=== PATIENT | male | born 1995 | race Two or more races ===

== ENCOUNTER 2024-03-16 08:00 | Outpatient (RCR) | payer MEDICAID, SELFPAY ==
--- NOTE | 2024-03-10 16:00 | PTNOTE_ITS ---
PT OP Initial Eval Patient Information Outpatient Physical Therapy Treatment Date: 03/10/24 Visit Reasons: MULTIPLE INJURIES DUE TO FALL Medical Diagnosis: [id number] Treatment Dx #1: back pain Treatment Dx #2: L knee pain, R ankle dec ROM Start of Care: 03/10/24 Date of Onset: 01/08/24 Smoking Status Smoking Status: Never smoker Initial Assessment Subjective: Pt is 28 yr old male who fell 30ft from a roof in December at work. He presents in W/C today and is NWB on B LE's until Mar 18. Pt underwent L3-5 laminectomy and fusion on 01/10/24 and sternal FX on sternal precautions, L bicondylar tibial plateau FX and L tibial ORIF on 01/11/24 and R subtalar FX dislocation with ORIF R talus on 01/18/24. He wore TLSO brace for 6 weeks and then the brace was D/C'd this week. Pt reports low pain level of L/S and R ankle but stiffness. The L knee hurts while he is sitting and in bed. PMH: T1DM Imaging: reports in MD notes Pt goal: to strengthen LE's and back to walk when WB status allows Objective: L knee AROM: Flexion: 100 deg Extension: full TTP: moderate of incision scars at the knee R ankle AROM: DF: 3 deg PF: 45 deg Gait: NT due to B NWB status Assessment: Pt presents with multiple surgical sites and mobility in standing not assessed due to NWB status. Pt has pain and stiffness and decreased ROM of L knee and R ankle consistent with referring Dx and surgical Hx. Pt requires skilled therapy to meet goals and has good rehab potential. Short Term and Senior Living Goals 1. Ind with HEP 2. Transfer sit to stand independently when WB status allows 3. Improved L knee AROM to full extension and flexion 4. Improved R ankle AROM to at least 8 deg DF and 50 deg PF 4. Pt will ambulate community distances without assistive device Treatment Plan ?1. Manual therapy ? 2. Therex ? 3. Modalities as indicated, moist heat, ice, estim Frequency and Duration: 2x a week for 24 visits. Will need more authorization after 12 Certification Dates: 03/10/24 to 06/08/24 Procedure Charges OP PT Eval Mod Complex 30 minutes: Yes
--- NOTE | 2024-03-16 09:32 | PT.ODAYNRPT ---
PT Outpatient Daily Note OP Daily Note Outpatient Physical Therapy Treatment Date: 03/16/24 Visit Reasons: MULTIPLE INJURIES DUE TO FALL Subjective: Pt reports R ankle swelling, LBP after sleeping Objective: See F/S for therex Assessment: Pt is NWB until Mar 18 so therex done in sitting Plan: Continue per POC Length of Time (minutes) of Treatment: 30 Minutes Procedure Charges Therapeutic Exercise 30 minutes: Yes
== END 2024-03-17 23:59 | disposition home or self-care (01) ==
LOC: CPTX 08:00
PROVIDERS: PCP Internal Medicine; Referring Provider Student in an Organized Health Care Education/Training Program; Visit Provider Student in an Organized Health Care Education/Training Program
DX: M25.562 Pain in left knee (principal); M54.9 Dorsalgia, unspecified; M25.671 Stiffness of right ankle, not elsewhere classified; S82.142D Displaced bicondylar fracture of left tibia, subsequent encounter for closed fracture with routine healing; S22.20XD Unspecified fracture of sternum, subsequent encounter for fracture with routine healing; S92.101D Unspecified fracture of right talus, subsequent encounter for fracture with routine healing; W17.89XD Other fall from one level to another, subsequent encounter; Z98.1 Arthrodesis status
CPT/HCPCS: 97110; 97162

== ENCOUNTER 2024-04-10 10:00 | Outpatient (RCR) | payer MEDICAID, SELFPAY ==
--- NOTE | 2024-03-20 10:27 | PT.ODAYNRPT ---
PT Outpatient Daily Note OP Daily Note Outpatient Physical Therapy Treatment Date: 03/20/24 Visit Reasons: Multiple injuries due to fall Subjective: Pt reports R ankle swelling, LBP after sleeping. Arrives ambulating with 4WW and L knee brace Objective: See F/S for therex Assessment: Pt is WBAT as of Mar 18 and he is ambulating with slightly unsymmetrical gait with decreased L knee flexion Plan: Continue per POC Length of Time (minutes) of Treatment: 30 Minutes Procedure Charges Therapeutic Exercise 30 minutes: Yes
--- NOTE | 2024-04-10 10:34 | PT.ODAYNRPT ---
PT Outpatient Daily Note OP Daily Note Outpatient Physical Therapy Treatment Date: 04/10/24 Visit Reasons: Multiple injuries due to fall Subjective: Pt arrives ambulating without assistive device and reports low to no pain in the knees and ankles. Objective: See F/S for therex Assessment: Pt is ambulating with slightly unsymmetrical gait with decreased L knee flexion Plan: Continue per POC Length of Time (minutes) of Treatment: 30 Minutes Procedure Charges Therapeutic Exercise 30 minutes: Yes
== END 2024-04-14 23:59 | disposition home or self-care (01) ==
LOC: CPTX 10:00
PROVIDERS: PCP Internal Medicine; Referring Provider Student in an Organized Health Care Education/Training Program; Visit Provider Student in an Organized Health Care Education/Training Program
DX: M54.50 Low back pain, unspecified (principal); M25.562 Pain in left knee; T07.XXXD Unspecified multiple injuries, subsequent encounter; W13.2XXD Fall from, out of or through roof, subsequent encounter
CPT/HCPCS: 97110

== ENCOUNTER 2024-05-03 14:00 | Outpatient (RCR) | payer MEDICAID, SELFPAY ==
--- NOTE | 2024-04-17 13:15 | PT.ODAYNRPT ---
PT Outpatient Daily Note OP Daily Note Outpatient Physical Therapy Treatment Date: 04/17/24 Visit Reasons: Multiple injuries due to fall Subjective: Pt arrives ambulating without assistive device and reports low to no pain in the knees and ankles. Objective: See F/S for therex Assessment: Pt is ambulating with slightly unsymmetrical gait with decreased L knee flexion. Good LE strength with partial body weight squatting and lunging. Plan: Continue per POC Length of Time (minutes) of Treatment: 30 Minutes Procedure Charges Therapeutic Exercise 30 minutes: Yes
--- NOTE | 2024-04-19 12:34 | PT.ODAYNRPT ---
PT Outpatient Daily Note OP Daily Note Outpatient Physical Therapy Treatment Date: 04/19/24 Visit Reasons: Multiple injuries due to fall Subjective: Pt arrives ambulating without assistive device and reports low to no pain in the knees and ankles. Objective: See F/S for therex Assessment: Pt is ambulating with slightly unsymmetrical gait. L knee flexion in supine is 125 deg. Good LE strength with partial body weight squatting and lunging. Plan: Continue per POC Length of Time (minutes) of Treatment: 30 Minutes Procedure Charges Therapeutic Exercise 30 minutes: Yes
--- NOTE | 2024-04-25 09:51 | PT.ODAYNRPT ---
PT Outpatient Daily Note OP Daily Note Outpatient Physical Therapy Treatment Date: 04/25/24 Visit Reasons: Multiple injuries due to fall Subjective: Pt arrives ambulating without assistive device and reports the L LE feels heavy when he bends the knee. He wants to try to walk better without the limp. Objective: See F/S for therex Assessment: Pt is ambulating with slightly unsymmetrical gait and less L knee flexion during swing phase. L knee flexion in supine is 125 deg. Good LE strength with partial body weight squatting and lunging. Plan: Continue per POC Length of Time (minutes) of Treatment: 30 Minutes Procedure Charges Therapeutic Exercise 30 minutes: Yes
--- NOTE | 2024-04-27 10:33 | PT.ODAYNRPT ---
PT Outpatient Daily Note OP Daily Note Outpatient Physical Therapy Treatment Date: 04/27/24 Visit Reasons: Multiple injuries due to fall Subjective: No new complaints. Objective: Please see flow sheet for ther ex list. Assessment: Pt tolerated interventions with no complaints. Plan: Continue with pOC. Length of Time (minutes) of Treatment: 30 Minutes Procedure Charges Therapeutic Exercise 30 minutes: Yes
--- NOTE | 2024-05-03 15:41 | PT.ODAYNRPT ---
PT Outpatient Daily Note OP Daily Note Outpatient Physical Therapy Treatment Date: 05/03/24 Visit Reasons: Multiple injuries due to fall Subjective: Pt arrives ambulating without assistive device and reports doing better with walking without limping Objective: See F/S for therex Assessment: Pt is ambulating with slightly unsymmetrical gait and less L knee flexion during swing phase. Balance challenged by uneven surfaces. Plan: Continue per POC Length of Time (minutes) of Treatment: 30 Minutes Procedure Charges Therapeutic Exercise 30 minutes: Yes
== END 2024-05-15 23:59 | disposition home or self-care (01) ==
LOC: CPTX 14:00
PROVIDERS: PCP Internal Medicine; Referring Provider Internal Medicine; Visit Provider Internal Medicine
DX: M54.50 Low back pain, unspecified (principal); M25.562 Pain in left knee; M25.662 Stiffness of left knee, not elsewhere classified; T07.XXXD Unspecified multiple injuries, subsequent encounter; W17.89XD Other fall from one level to another, subsequent encounter
CPT/HCPCS: 97110

== ENCOUNTER 2024-07-20 13:14 | Outpatient (AMB) | payer MEDICAID, SELFPAY ==
[2024-07-20 13:45] VITALS: BP 122/67; PULSE 62; RESP 19; TEMP 37; O2SAT 98; BMI 21.1
--- NOTE | 2024-07-20 13:45 | ORTHONT_ITS ---
Vital signs 07/20/24 13:45 Height 1.88 m Height Method Stated Weight 74.531 kg Weight Measurement Method Standing Scale BMI 21.1 BP 122/67 Blood Pressure Source Automatic Cuff Blood Pressure Location Left Upper Arm Position Sitting Respiration 19 Pulse 62 Pulse Source Monitor Temp 98.6 F Temp Source Temporal Artery Scan Pulse Oximetry (%) 98 Oxygen Delivery Method Room Air Med/Allergies Allergies & Medications Allergies No Known Allergies Allergy (Verified 07/20/24 13:46) Medication Reconciliation insulin pump-infusion set-blood glucose meter kit 01/27/19 [History Confirmed 07/20/24] insulin aspart U-100 100 unit/mL subcutaneous solution (Novolog U-100 Insulin aspart) 1 sliding scale dose subcut USEASDIRECTD #10 mL 01/29/19 [Rx Confirmed 07/20/24] gabapentin 100 mg capsule 100 mg PO QDAY 07/20/24 [History Confirmed 07/20/24] oxycodone 5 mg capsule 5 mg PO BID PRN 07/20/24 [History Confirmed 07/20/24] Exam Exam Patient is in no acute distress and is cooperative with the examination today. Breathing is nonlabored. Patient has a normal mood and affect. The patient has a gait that is nonantalgic Bilateral extremities were evaluated and demonstrates sensation intact to light touch. Palpable pedal pulses are present. No significant edema is present. Bilateral hips were examined. The patient has no pain with log roll of the hips. Internal rotation to 30 degrees and external rotation to 30 degrees is painless. Negative FADIR. Right knee was examined today. The right knee is in reasonable alignment. Range of motion from 0-120 degrees. Knee is stable to varus and valgus as well as AP translation with <5mm. Patient has a negative McMurrays. There is no pain with patellofemoral compression and no crepitus noted. The knee is nontender to palpation. Left knee was examined today. The left knee is in neutral alignment. Range of motion from 0-120 degrees. Knee is stable to varus and valgus as well as AP t ranslation with <5mm. Patient has a negative McMurrays. There is no pain with patellofemoral compression and no crepitus noted. The knee is nontender to palpation diffusely. Left knee incision is clean dry and intact Left knee x-rays demonstrate reduced joints with 3 plates on it looks great Assessment and Plan Problem List (1) Tibial plateau fracture: Status: Acute Plan: Patient is a 29-year-old male with a tibial plateau fracture done at [facility]. He is doing well. He has not been seen since surgery and would like to get follow-up. We will get x-rays of his left knee and go from there. He has minimal pain at this time Office Procedures GNS Level of Care Nursing/Assessment Patient Status: Initial/New Patient Nursing Assessment/Reassesment: Medication Reconciliation, Update PMH in EMR and Vital Signs Coordination of Care: Complex Care and Chronic Disease 1-5, Education Complex Pt/Fam, Consent,records obtained, informed consent, 1 Ins Authorization, Lab and Imaging orders, Results/Orders obtained and Staff clarify orders New Patient Charge New Patient Point Assignment: 1124 New Patient Point Charge: SOFTWARE ASSET MANAGEMENT ANALYST Level 4 ([id number]) MA Intake Visit Data Collection New Patient or Established: New Patient (never been to [facility]) Reason for Visit:: FRACTURE SHAFT TIBIA Seen by Clinical Staff ONLY (RN/MA): No Classroom Instructional Aide Required: No PCP or OBGYN visit in last 3 months: Yes Hx Now: No Do You Feel Safe at Home: Yes Authorities Contacted: N/A Questionairres Past Medical History Past Medical History Have you ever been diagnosed with any of the following: Cardiology Problems Congestive Heart Failure: No Respiratory Problems Chronic Obstructive Pulmonary Disease (COPD): No Smoking: No Smoking Exposure: No Genital/Urinary Problems Renal Disease: No Endocrine Problems Diabetes Mellitus Type 1: Yes Diabetes Mellitus Type 2: No Subjective Visit Visit for: new patient Immunization / Flu Flu Vaccine in the Last 12 Months: No Flu Vaccine Exclusion Criteria: No Exclusion Criteria History of Present Illness Chief complaint: Left knee pain Date of injury / onset of symptoms: 01/12/2024 Personal History Occupation: UNEMPLOYED Additional comments: Yasir is a 29-year-old male who fell through a roof down 3 floors. He had a left tibial plateau fracture. It was treated with bicondylar plating done at [facility]. X-rays look great On immediate postoperative films. He has not been seen since the surgery. He is functioning well. Pain Pain level (0-10): 0 Ambulatory data Ambulatory device: none Treatments Improvement with previous injections: No Improvement with PT: No Improvement with NSAIDS: no Review of Systems Review of Systems: All systems negative unless otherwise noted in HPI.
--- NOTE | 2024-07-20 14:04 | XR_ITS ---
Examination: Left knee 4 views TECHNIQUE: AP oblique lateral axial left knee 4 views Date and time: July 20, 2024 1412 hours INDICATIONS: Status post knee surgery December 2023 FINDINGS: Postop reduction internal medication fractures proximal tibia Satisfactory alignment Satisfactory position orthopedic hardware Moderate tricompartment osteoarthritis most severe medial joint space IMPRESSION: Postop reduction internal fixation fractures proximal tibia with satisfactory alignment Moderate tricompartment osteoarthritis
== END 2024-07-20 14:07 | disposition home or self-care (01) ==
LOC: HODSRG 13:14
PROVIDERS: PCP Internal Medicine; Referring Provider Internal Medicine; Supervising Provider Orthopaedic Surgery Adult Reconstructive Orthopaedic Surgery; Visit Provider Orthopaedic Surgery Adult Reconstructive Orthopaedic Surgery
DX: S82.142D Displaced bicondylar fracture of left tibia, subsequent encounter for closed fracture with routine healing (principal); W13.2XXD Fall from, out of or through roof, subsequent encounter; M17.12 Unilateral primary osteoarthritis, left knee; E10.9 Type 1 diabetes mellitus without complications
CPT/HCPCS: 73564; 99204; G0463

== ENCOUNTER 2024-08-03 10:17 | Outpatient (AMB) | payer MEDICAID, SELFPAY ==
--- NOTE | 2024-08-03 10:36 | ORTHONT_ITS ---
Vital signs 08/03/24 10:37 Height 1.88 m Height Method Stated Weight 73.737 kg Weight Measurement Method Standing Scale BMI 20.8 BP 106/70 Blood Pressure Source Automatic Cuff Blood Pressure Location Right Upper Arm Position Sitting Respiration 18 Pulse 66 Pulse Source Monitor Temp 97.8 F Temp Source Temporal Artery Scan Pulse Oximetry (%) 97 Oxygen Delivery Method Room Air Med/Allergies Allergies & Medications Allergies No Known Allergies Allergy (Verified 08/03/24 10:39) Medication Reconciliation insulin pump-infusion set-blood glucose meter kit 01/27/19 [History Confirmed 08/03/24] insulin aspart U-100 100 unit/mL subcutaneous solution (Novolog U-100 Insulin aspart) 1 sliding scale dose subcut USEASDIRECTD #10 mL 01/29/19 [Rx Confirmed 08/03/24] gabapentin 100 mg capsule 100 mg PO QDAY 07/20/24 [History Confirmed 08/03/24] oxycodone 5 mg capsule 5 mg PO BID PRN 07/20/24 [History Confirmed 08/03/24] Exam Exam Patient is in no acute distress and is cooperative with the examination today. Breathing is nonlabored. Patient has a normal mood and affect. The patient has a gait that is nonantalgic Bilateral extremities were evaluated and demonstrates sensation intact to light touch. Palpable pedal pulses are present. No significant edema is present. Bilateral hips were examined. The patient has no pain with log roll of the hips. Internal rotation to 30 degrees and external rotation to 30 degrees is painless. Negative FADIR. Right knee was examined today. The right knee is in reasonable alignment. Range of motion from 0-120 degrees. Knee is stable to varus and valgus as well as AP translation with <5mm. Patient has a negative McMurrays. There is no pain with patellofemoral compression and no crepitus noted. The knee is nontender to palpation. Left knee was examined today. The left knee is in neutral alignment. Range of motion from 0-120 degrees. Knee is stable to varus and valgus as well as AP translation with <5mm. Patient has a negative McMurrays. There is no pain with patellofemoral compression and no crepitus noted. The knee is nontender to palpation diffusely. Left knee incision is clean dry and intact Left knee x-rays demonstrate reduced joints with 3 plates on it looks great. Recent x-rays demonstrate anatomic reduction Assessment and Plan Problem List (1) Tibial plateau fracture: Status: Acute Plan: Patient is a 29-year-old male with a tibial plateau fracture done at [facility]. He is doing well. He is doing well overall. His x-rays of the past Office Procedures GNS Level of Care Nursing/Assessment Patient Status: Established Patient Nursing Assessment/Reassesment: Medication Reconciliation, Update PMH in EMR and Vital Signs Coordination of Care: Complex Care and Chronic Disease 1-5, Education Complex Pt/Fam, Consent,records obtained, informed consent, Results/Orders obtained and Staff clarify orders Established Patient Charge Established Patient Point Assignment: 95 Established Patient Point Charge: EP Level 3 (80-115) MA Intake Visit Data Collection New Patient or Established: Established Patient (seen at [facility] within 3 years) Reason for Visit:: TIBAIL PLATEAU FRACTURE Seen by Clinical Staff ONLY (RN/MA): No Verbal consent obtained for Telemed visit?: No Teaching Fellow Required: No PCP or OBGYN visit in last 3 months: Yes Hx Now: No Do You Feel Safe at Home: Yes Authorities Contacted: N/A Questionairres Past Medical History Past Medical History Have you ever been diagnosed with any of the following: Cardiology Problems Congestive Heart Failure: No Respiratory Problems Chronic Obstructive Pulmonary Disease (COPD): No Smoking: No Smoking Exposure: No Genital/Urinary Problems Renal Disease: No Endocrine Problems Diabetes Mellitus Type 1: Yes Diabetes Mellitus Type 2: No Subjective Visit Visit for: new patient Immunization / Flu Flu Vaccine in the Last 12 Months: No Flu Vaccine Exclusion Criteria: No Exclusion Criteria History of Present Illness Chief complaint: Left knee pain Date of injury / onset of symptoms: 01/12/2024 Personal History Occupation: UNEMPLOYED Additional comments: Yasir is a 29-year-old male who fell through a roof down 3 floors. He had a left tibial plateau fracture. It was treated with bicondylar plating done at [facility]. X-rays look great On immediate postoperative films. He has not been seen since the surgery. He is functioning well. Reports the pain is minimal. Pain Pain level (0-10): 0 Ambulatory data Ambulatory device: none Treatments Improvement with previous injections: No Improvement with PT: No Improvement with NSAIDS: no Review of Systems Review of Systems: All systems negative unless otherwise noted in HPI.
[2024-08-03 10:37] VITALS: BP 106/70; PULSE 66; RESP 18; TEMP 36.6; O2SAT 97; BMI 20.8
== END 2024-08-03 10:48 | disposition home or self-care (01) ==
LOC: HODSRG 10:17
PROVIDERS: PCP Internal Medicine; Referring Provider Internal Medicine; Supervising Provider Orthopaedic Surgery Adult Reconstructive Orthopaedic Surgery; Visit Provider Orthopaedic Surgery Adult Reconstructive Orthopaedic Surgery
DX: S82.142D Displaced bicondylar fracture of left tibia, subsequent encounter for closed fracture with routine healing (principal); W13.2XXD Fall from, out of or through roof, subsequent encounter; E10.9 Type 1 diabetes mellitus without complications
CPT/HCPCS: 99213; G0463